=== PATIENT | female | born 2000 | race Caucasian/White ===

== ENCOUNTER 2021-10-12 09:55 | Emergency (ER) | payer SELFPAY ==
[2021-10-12] MEDS ORDERED: KETOROLAC TROMETHAMINE 30 MG/1 ML VIAL IM ONE (12:33)
[2021-10-12] MEDS ORDERED: LIDOCAINE 5% TOPICAL PATCH TP ONE (12:34)
[2021-10-12 12:37] VITALS: BP 128/81; PULSE 88; TEMP 97.9; BMI 24.6
[2021-10-12] MEDS ORDERED: LIDOCAINE 5% TOPICAL PATCH ONE (12:37)
[2021-10-12] MEDS ORDERED: KETOROLAC TROMETHAMINE 30 MG/1 ML VIAL ONE (12:37)
[2021-10-12] MEDS ORDERED: LIDOCAINE PATCH REMOVAL MC ONE (22:00)
== END 2021-10-12 14:19 | disposition home or self-care (01) ==
LOC: JER 09:55 → JERFT 09:55
PROC: 3E023GC Introduction of Other Therapeutic Substance into Muscle, Percutaneous Approach (ICD-10-PCS; principal; 2021-10-12)
DX: M54.89 Other dorsalgia (principal)
CPT/HCPCS: 72131-TC; 84703; 99284-25